=== PATIENT | male | born 1955 | race Caucasian/White ===

== ENCOUNTER 2024-02-22 01:21 | Day surgery (SDC) | payer MEDICARE, SELFPAY ==
[2024-01-25 14:50] VITALS: BMI 25.9
[2024-02-14 09:02] VITALS: BMI 25.9
[2024-02-22 12:53] VITALS: BP 137/71; PULSE 60; RESP 18; TEMP 36.3; O2SAT 100; BMI 25.2
[2024-02-22] MEDS: LACTATED RINGERS 1,000 ML 150 ML IV CONT (13:02)
--- NOTE | 2024-02-22 13:38 | PM.IMHP ---
H&P: HPI History of Present Illness Date/Time: 02/22/24 13:38 Chief Complaint: Screening colonoscopy Narrative: This is the patient's 2nd colonoscopy after almost 10 years.. There are no GI symptoms and there is no family history of colorectal cancer. Review of Systems Review of Systems: All systems reviewed & are unremarkable except as noted in HPI and below PMFSH Past Medical History Medical History Depression Hypertension Insomnia Iritis Lumbago PATRICIA (obstructive sleep apnea) Unintentional weight loss Surgical History Surgical History H/O colonoscopy 12/15/2014 H/O knee surgery H/O rotator cuff surgery History of back surgery S/P nasal surgery Social History Social History Smoking status: Former smoker Tobacco type: cigarettes Alcohol intake: never Substance use: never Lack of Transportation: No Lack of Food: Never True Current Housing: I Have Housing Concerned About Future Housing: No Difficulty Paying Gas/Electric Bills: No Difficulty Paying for Meds: No Currently Unemployed: No Education: High School Diploma/GED Difficulty w/ Childcare or Family Care: No Living arrangements: with family Additional living arrangements comments: with Occupation/Education: retired Spiritual care concerns: No Agree to blood products: Yes Meds Home Medications and Allergies Home Medications Medication Instructions Recorded Confirmed Type oxycodone 5 mg tablet 5 mg PO Q8H PRN Low back pain #20 10/31/22 02/22/24 Rx tabs ferrous sulfate 325 mg (65 mg 325 mg PO DAILY 11/04/22 02/22/24 History iron) tablet carvedilol 25 mg tablet 25 mg PO BID #180 tabs 09/07/23 02/22/24 Rx tramadol 50 mg tablet 50 mg PO Q6H PRN pain #24 tabs 10/30/23 02/22/24 Rx citalopram 20 mg tablet 20 mg PO DAILY #90 tabs 12/21/23 02/22/24 Rx Allergies Allergy/AdvReac Type Severity Reaction Status Date / Time No Known Allergies Allergy Verified 02/22/24 12:50 Vital Signs Vital Signs - 24 hr 02/22/24 12:53 Temperature 97.3 F L Pulse Rate 60 Respiratory Rate 18 Blood Pressure 137/71 Pulse Oximetry 100 Oxygen Delivery Room Air Exam Const: General: cooperative and healthy appearing Resp: Effort & Inspection: normal respiratory effort and able to speak in complete sentences Auscultation: clear to auscultation bilaterally Cardio: Rate: regular rate Rhythm: regular rhythm GI: Inspection: normal to inspection GI Palp: No No hepatosplenomegaly present Auscultation: normal bowel sounds Rectal Exam: deferred Skin: General skin exam: normal color Psych: Appearance: grossly normal Mental Status: mental status grossly normal Assessment and Plan Assessment and plan (1) Screening for malignant neoplasm of colon: Code(s): Z12.11 - Encounter for screening for malignant neoplasm of colon Status: Acute Assessment and Plan: The patient is deemed a good candidate for the procedure. Consent signed. Will proceed.
--- NOTE | 2024-02-22 13:40 | P.PNAN_ITS ---
Anes - Initial Pre Proc Eval Procedure: Operation Date: 02/22/24 14:00 Proposed Procedures p Colonoscopy - Maulik Locke MD Date/Time: 02/22/24 13:40 Surgeon: Maulik Locke MD Pre Op Diagnosis: Colitis Patient Data Age: 68 Gender: M Height: 1.73 m Weight: 75.2 kg Last Vital Signs Temp 36.3 C L 02/22/24 12:53 Pulse 60 02/22/24 12:53 Resp 18 02/22/24 12:53 BP 137/71 02/22/24 12:53 Pulse Ox 100 02/22/24 12:53 O2 Del Method Room Air 02/22/24 12:53 Allergies Allergy/AdvReac Type Severity Reaction Status Date / Time No Known Allergies Allergy Verified 02/22/24 12:50 Home Medications Medication Instructions Recorded Confirmed Type oxycodone 5 mg tablet 5 mg PO Q8H PRN Low back pain #20 10/31/22 02/22/24 Rx tabs ferrous sulfate 325 mg (65 mg 325 mg PO DAILY 11/04/22 02/22/24 History iron) tablet carvedilol 25 mg tablet 25 mg PO BID #180 tabs 09/07/23 02/22/24 Rx tramadol 50 mg tablet 50 mg PO Q6H PRN pain #24 tabs 10/30/23 02/22/24 Rx citalopram 20 mg tablet 20 mg PO DAILY #90 tabs 12/21/23 02/22/24 Rx Patient hx anesthesia problems: none Family hx anesthesia problems: none Results Review: All pre-operative results and documents have been reviewed as part of the pre- operative evaluation. COUNTS INCLUDE 234 BEDS AT THE [facility] Past Medical History Medical History Depression Hypertension Insomnia Iritis Lumbago PATRICIA (obstructive sleep apnea) Unintentional weight loss Surgical History Surgical History H/O colonoscopy 12/15/2014 H/O knee surgery H/O rotator cuff surgery History of back surgery S/P nasal surgery Social History Social History Smoking status: Former smoker Tobacco type: cigarettes Alcohol intake: never Substance use: never Lack of Transportation: No Lack of Food: Never True Current Housing: I Have Housing Concerned About Future Housing: No Difficulty Paying Gas/Electric Bills: No Difficulty Paying for Meds: No Currently Unemployed: No Education: High School Diploma/GED Difficulty w/ Childcare or Family Care: No Living arrangements: with family Additional living arrangements comments: with Occupation/Education: retired Spiritual care concerns: No Agree to blood products: Yes Anes - Eval Final PreProcedure Day of Procedure 02/22/24 13:40 Heart: regular rate and rhythm Lungs: normal air movement Airway: Mallampati scale class II Neurological: alert and oriented Last oral intake: >/= 8 hours ASA classification: III Emergent: no Anesthetic plan: proceed Anesthesia type and monitoring: general GIVS Results Review: All pre-operative results and documents have been reviewed as part of the pre- operative evaluation. Informed Consent: The patient's anesthetic plan and its attendant risks and benefits were discussed with the patient/family/POA. Questions were solicited and answers provided to the satisfaction of the patient/family/POA.
[2024-02-22 14:06] VITALS: BP 96/60; PULSE 62; RESP 19; O2SAT 100
[2024-02-22 14:16] VITALS: BP 124/70; PULSE 68; RESP 16; O2SAT 100
[2024-02-22 14:26] VITALS: BP 125/76; PULSE 70; RESP 16; O2SAT 100
== END 2024-02-22 14:33 | disposition home or self-care (01) ==
PROVIDERS: PCP Physician Assistant Medical; Referring Provider Nurse Practitioner; Visit Provider Internal Medicine Gastroenterology
PROC: 0DJD8ZZ Inspection of Lower Intestinal Tract, Via Natural or Artificial Opening Endoscopic (ICD-10-PCS; CPT 45378; principal; 2024-02-22 14:00)
DX: Z12.11 Encounter for screening for malignant neoplasm of colon (principal); D12.5 Benign neoplasm of sigmoid colon; K64.8 Other hemorrhoids; I10 Essential (primary) hypertension; F32.A Depression, unspecified; G47.00 Insomnia, unspecified; G47.33 Obstructive sleep apnea (adult) (pediatric); Z79.891 Long term (current) use of opiate analgesic; Z98.890 Other specified postprocedural states; Z98.1 Arthrodesis status; Z87.891 Personal history of nicotine dependence
CPT/HCPCS: 45385; 88305; J2003; J2704; J7120